=== PATIENT | female | born 1995 | race Caucasian/White ===

== ENCOUNTER → 2017-06-01 | Outpatient (CLI) | payer OTHER ==
[2016-10-28 12:10] VITALS: BP 99/46
--- NOTE | 2017-06-01 11:57 | RAD ---
Ultrasound abdomen complete 06/01/2017 Indication: Right upper quadrant abdominal pain. Normal liver enzymes. Comparison: None. Findings: Visualized pancreas body within normal limits. Grayscale evaluation of the abdominal aorta and visualized upper IVC are within normal limits. Gallbladder is normal in size and configuration without wall thickening, pericholecystic fluid or cholelithiasis. Main portal vein is patent with normal directional flow. No intra or extra hepatic biliary ductal dilatation with the common bile but measuring 4 mm. Right kidney is present measuring up to 10.5 cm in length without collecting system dilatation. Left kidney is present measuring up to 9.8 cm in length without collecting system dilatation. Spleen is normal in size measuring up to 9.3 cm CC. Impression: Normal abdominal sonogram without evidence for acute cholecystitis.
== END | disposition home or self-care (01) ==
LOC: US 07:55
PROVIDERS: ATTEND Physician Assistant
DX: R10.11 Right upper quadrant pain (principal); J00 Acute nasopharyngitis [common cold]
CPT/HCPCS: 76700

== ENCOUNTER 2017-06-02 07:42 | Emergency (ER) | payer OTHER ==
[~2017-06-02] VITALS: Ht 165.1 cm; Wt 70.8 kg
[2017-06-02] MEDS ORDERED: IV NORMAL SALINE 1,000ML 1,000 ML IV SCH (08:07)
[2017-06-02 08:38] VITALS: BP 133/72
--- NOTE | 2017-06-02 08:39 | PHYS DOC ---
General Chief Complaint: HEADACHE Stated Complaint: HEADACHE Time Seen by MD: 07:48 Source: patient Exam Limitations: no limitations Problems: History of Present Illness Initial Comments Patient is a 21-year-old female who comes to the ED complaining of migraine headache. Patient states she has long history of migraines, states she normally takes Excedrin Migraine with good relief. She's never been evaluated by neurology and has no history of head CT evaluation. Patient states that she awoke with a frontal headache, photophobia, nausea, and scotoma denies aura. Headache is described as sharp and throbbing much worse when sitting up standing and active. Symptoms relieved almost entirely with supine posture and rest. She denies being out in the heat a lot but does admit that she hasn't been drinking much. She denies fever rash or neck stiffness and states symptoms are similar to prior headaches. She denies head trauma or focal neurologic deficit or other complaints. No pre-arrival treatment Timing/Duration: 1-3 hours Severity: severe Modifying Factors: worse with movement, improves with rest Associated Symptoms: headaches, nausea/vomiting Allergies: Coded Allergies: No Known Drug Allergies (Unverified , 10/28/16) Past Medical History Medical History: migraines Surgical History: noncontributory Social History Smoker: non-smoker Alcohol: occasionally Drugs: none Review of Systems Constitutional: denies chills, denies diaphoresis, denies fever, malaise EENTM: denies eye pain, denies blurred vision, denies tearing, denies double vision, denies ear discharge, denies nose congestion, denies throat pain, denies mouth pain Respiratory: denies cough, denies shortness of breath, denies wheezing Cardiovascular: denies chest pain, denies palpitations, denies syncope Gastrointestinal: denies abdominal pain, denies diarrhea, nausea, vomiting Genitourinary: denies dysuria, denies frequency, denies hematuria Musculoskeletal: denies back pain, denies joint swelling, denies muscle pain, denies neck pain Psychiatric/Neurological: headache, denies numbness, denies paresthesia, denies seizure, denies weakness Physical Exam General Appearance: WD/WN, moderate distress Eyes: bilateral eye normal inspection, bilateral eye PERRL, bilateral eye EOMI Ear, Nose, Throat: hearing grossly normal, normal ENT inspection (dry mucous membranes), normal pharynx Neck: non-tender, supple Respiratory: normal breath sounds, no respiratory distress Cardiovascular: normal peripheral pulses, regular rate, rhythm Gastrointestinal: non tender, soft Back: no CVA tenderness, no vertebral tenderness Extremities: non-tender, normal inspection, no pedal edema, no calf tenderness Neurologic/Psychiatric: 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 Patient refuses CT evaluation in the department. 0936: Rechecked pt found her asleep. Upon waking states she still has very slight BOOTHE but overall is better. I discussed tx plan she expressed agreement/ understanding. Patient understands the need for close PCP follow-up and either CT evaluation of the head or neurologic referral. Departure Time of Disposition: 09:36 Disposition: 01 HOME, SELF-CARE Diagnosis: recurrant migraine Condition: IMPROVED Patient Instructions: Migraine Headache, [id number] Additional Instructions: Off work/school today. Rest, no strenuous activity. Aggressive hydration with gatorade, water. OTC tylenol/ibuprofen as needed. Rx: sumatriptan, zofran Follow up with your doctor Monday and to schedule outpatient neurology consultation. Return to ED with new or changing symptoms. HARJEET UPTON DO Jun 02, 2017 08:39
[2017-06-02] MEDS ORDERED: SUMAtriptan. 6 MG/0.5 ML VIAL SQ ONE (08:45)
[2017-06-02] MEDS ORDERED: diphenhydrAMINE 50 MG/ML VIAL IVP ONE (08:45)
[2017-06-02] MEDS ORDERED: ONDANSETRON PF 4 MG/2 ML VIAL. IV ONE (08:45)
== END 2017-06-02 09:45 | disposition home or self-care (01) ==
LOC: ER 07:42
DX: G43.809 Other migraine, not intractable, without status migrainosus (principal)
CPT/HCPCS: 96361; 96372; 96374; 96375; 99284; J1200; J2405; J3030; J7030

== ENCOUNTER 2017-11-08 00:26 | Emergency (ER) | payer OTHER ==
[~2017-11-08] VITALS: Ht 165.1 cm; Wt 70.8 kg
[2017-11-08] MEDS ORDERED: ONDANSETRON ODT 4 MG TAB.RAPDIS PO ONE (01:30)
[2017-11-08] MEDS ORDERED: ALPRAZolam 0.25 MG TABLET ONE (02:12)
--- NOTE | 2017-11-08 02:12 | PHYS DOC ---
General Chief Complaint: panic attack Stated Complaint: alcohol intoxication Time Seen by MD: 01:02 Source: patient, family Exam Limitations: intoxication Problems: History of Present Illness Initial Comments Patient is a 22-year-old female brought to the ED by her fianc for chest tightness. Patient admits to drinking at least 5 shots of whiskey tonight, states that she awoke about an hour ago with chest tightness. She points to her anterior chest and states that at times it feels like she is having trouble catching her breath , she denies nausea diaphoresis arm or neck symptoms. She is not a smoker and does not take control she denies any leg swelling or palpitations. She admits to drinking heavily when not going to class as she is a student. Her fianc states that she drank more tonight than normal. She has history of anxiety and panic attacks and experienced similar symptoms with at least panic attacks in the past. She denies any suicidal or homicidal ideation and on arrival symptoms are described as mild to moderate no exacerbating or alleviating factors noted. On my evaluation the patient is slurring and obviously intoxicated, she is very anxious with stable vital signs for someone who has had some much to drink heart rate running in the 90s to less than 110. She denies any family history of coronary artery disease she is not a smoker and has no DVT risks. No stool changes no vomiting no hematemesis or coffee grounds emesis. Timing/Duration: 1 hour Severity: mild Modifying Factors: improves with other Associated Symptoms: other Allergies: Coded Allergies: No Known Drug Allergies (Unverified , 10/28/16) Past Medical History Medical History: migraines Surgical History: noncontributory Psychosocial History: anxiety (panic attacks) Social History Smoker: non-smoker Alcohol: other (admits to binge drinking "on holiday") Drugs: none Review of Systems Constitutional: denies chills, denies diaphoresis, denies fever, denies malaise , denies weakness Respiratory: see HPI, denies cough, denies wheezing Cardiovascular: see HPI, palpitations, denies syncope Gastrointestinal: denies abdominal pain, denies diarrhea, denies nausea, denies vomiting Genitourinary: denies dysuria, denies frequency, denies hematuria Musculoskeletal: denies back pain, denies joint swelling, denies neck pain Psychiatric/Neurological: denies headache, denies numbness, denies paresthesia Hematologic/Lymphatic: denies anemia, denies blood clots, denies easy bleeding , denies easy bruising Physical Exam General Appearance: WD/WN, mild distress (anxious and intoxicated) Eyes: bilateral eye PERRL, bilateral eye EOMI, bilateral eye other ( conjunctivae injected bilaterally no scleral icterus) Ear, Nose, Throat: hearing grossly normal, normal ENT inspection, normal pharynx (dry mucous membranes) Neck: non-tender, supple Respiratory: chest non-tender, normal breath sounds, no respiratory distress Cardiovascular: normal peripheral pulses, regular rate, rhythm Gastrointestinal: normal bowel sounds, non tender, soft Back: no CVA tenderness, no vertebral tenderness Extremities: normal range of motion, non-tender, normal inspection, no pedal edema, no calf tenderness Neurologic/Psychiatric: 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 Interpreted by me. On initial evaluation the patient appears to be intoxicated, she also appears to be having a panic attack. A trial of Zofran ODT and portable chest x-ray as workup are agreed upon. Chest AP: No acute cardiopulmonary process, interpreted by me. Patient reevaluated after Zofran and chest x-ray, her color has improved and although she did develop nausea during my exam it has resolved. She is much more steady and no longer slurring, she still complains of anxiety and mild chest tightness. Due to extremely high ED volume the patient has had a prolonged course and has sobered up substantially, trial of alprazolam by mouth initiated. 0245: Patient reports that her chest pain resolved with alprazolam 0.5 mg by mouth. She is now ambulatory and steady on her feet walking to and from the bathroom. She now asymptomatic and states she is ready for discharge. She is not driving and her fianc and is sober, caring, and appears to be responsible. Impressions: Alcohol intoxication Panic attack Mild clinical hypovolemia tolerating by mouth History of alcohol abuse without history of withdrawal symptoms Departure Time of Disposition: 02:46 Disposition: 01 HOME, SELF-CARE Diagnosis: alcohol intoxication, panic attack Condition: IMPROVED Patient Instructions: Alcohol Intoxication, [id number], Anxiety and Panic Attacks, [id number] Additional Instructions: Please review the patient education materials given by ED staff. Aggressive hydration with Gatorade or water. Drink alcohol in moderation. No driving or operating machinery while under the influence of sedative medications. [id number] Tylenol or ibuprofen as needed. Follow-up with your doctor in 1-2 days if symptoms recur. Return to ED with new or changing symptoms. HARJEET UPTON DO Nov 08, 2017 02:12
[2017-11-08] MEDS ORDERED: ALPRAZolam 0.25 MG TABLET PO ONE ×2 (02:15→03:00)
[2017-11-08] MEDS ORDERED: ALPRAZolam 0.5 MG TABLET PO ONE (02:15)
[2017-11-08 03:00] VITALS: BP 119/67
--- NOTE | 2017-11-08 05:37 | EKG ---
[address] [address] Test Date: 2017-11-08 Test Time: 00:33:45 Pat Name: DELMA MCINTYRE Department: Room: Gender: F Featherer: DON : 1995 Requested By: HARJEET UPOTN Order Number: [id number] Reading MD: Eliezer Mccoy MD Measurements Intervals Plush Rate: 99 P: 49 CT: 172 QRS: 36 QRSD: 88 T: 19 QT: 336 QTc: 436 Interpretive Statements SINUS RHYTHM NON-SPECIFIC ST CHANGES LATERALLY Electronically Signed On 11-10-2017 12:47:26 [employer] by Eliezer Mccoy MD
--- NOTE | 2017-11-08 07:16 | RAD ---
Portable chest, 11/08/2017: History: Chest tightness, intoxication The heart size is normal. The lungs are clear. There is no evidence of pleural fluid. IMPRESSION: No acute cardiopulmonary abnormality is detected.
== END 2017-11-08 03:00 | disposition home or self-care (01) ==
LOC: ER 00:26
DX: F10.129 Alcohol abuse with intoxication, unspecified (principal); F41.0 Panic disorder [episodic paroxysmal anxiety]; E86.1 Hypovolemia; G43.909 Migraine, unspecified, not intractable, without status migrainosus
CPT/HCPCS: 71045; 93005; 99284; Q0162

== ENCOUNTER → 2018-09-14 | Outpatient (CLI) | payer OTHER ==
--- NOTE | 2018-09-14 08:58 | RAD ---
Examination: Ultrasound pelvis HISTORY: History of left lower quadrant abdominal pain COMPARISON: None available FINDINGS: The uterus measures 9.0 x 5.5 x 4.1 cm. The endometrium measures 4.1 mm in diameter. The right ovary measures 4.3 x 3.8 x 2.2 cm. The left ovary measures 4.9 x 4.8 x 2.8 cm. There is a cystic structure identified in the left ovary measuring 3.4 cm containing echogenicity within probably a cyst or hemorrhagic cyst with clot within. Blood flow identified in the right and left ovaries. Multiple follicles identified in the bilateral ovaries. IMPRESSION: 1. 3.4 cm cystic structure identified the left ovary containing echogenicity within could be a cyst or a hemorrhagic cyst with clot. 2. Multiple follicles identified in the right and left ovaries, correlate clinically for polycystic ovarian syndrome. Electronically signed by: Mike Forrester MD (09/14/2018 8:54 AM) [place] [id number]
== END | disposition home or self-care (01) ==
LOC: US 07:49
PROVIDERS: ATTEND Family Medicine
DX: N83.202 Unspecified ovarian cyst, left side (principal); N83.201 Unspecified ovarian cyst, right side
CPT/HCPCS: 76830; 76856

== ENCOUNTER 2019-06-25 06:11 | Emergency (ER) | payer OTHER ==
[~2019-06-25] VITALS: Ht 165.1 cm; Wt 75.3 kg
--- NOTE | 2019-06-25 06:34 | PHYS DOC ---
Past History Past Medical History: Migraines Additional Past Medical Histor: ADHD Past Surgical History: No Surgical History Smoking: Non-smoker Alcohol Use: Occasionally Drug Use: None Adult General Chief Complaint Chief Complaint: ABDOMINAL PAIN HPI HPI Patient is a 23-year-old female who presents to the emergency department for evaluation of epigastric and right upper quadrant pain which began overnight, and has been persistent. She has had some nausea but no vomiting, has not had any diarrhea or changes in her bowel habits, and has not had any urinary symptoms. She denies any lower abdominal pain, or pelvic pain, vaginal discharge, or abnormal vaginal bleeding. Her LMP began one week ago and ended 2 days ago. She has not had similar symptoms in the past. There are no alleviating or exacerbating factors to her symptoms. Review of Systems Review of Systems Constitutional: Denies fever or chills [] Eyes: Denies change in visual acuity, redness, or eye pain [] HENT: Denies nasal congestion or sore throat [] Respiratory: Denies cough or shortness of breath [] Cardiovascular: The patient denies any shortness of breath, chest pain, palpitations, or orthopnea [] GI: No additional information not addressed in HPI [] : Denies dysuria or hematuria [] Musculoskeletal: Denies back pain or joint pain [] Integument: Denies rash or skin lesions [] Neurologic: Denies headache, focal weakness or sensory changes [] Endocrine: Denies polyuria or polydipsia [] All other systems were reviewed and found to be within normal limits, except as documented in this note. Allergies Allergies Allergies Coded Allergies Type Severity Reaction Last Updated Verified No Known Drug Allergies 10/28/16 No Physical Exam Physical Exam PHYSICAL EXAM: CONSTITUTIONAL: Well developed, well nourished HEAD: normocephalic, atraumatic EENT: PERRL, EOMI. Conjunctivae normal color, sclerae non-icteric; moist mucous membranes. NECK: Supple, non-tender; no meningismus. LUNGS: Lungs CTA, breathing even and unlabored. Normal air movement. HEART: Regular rate and rhythm, no murmur CHEST: No deformity; non-tender ABDOMEN: The abdomen is soft, there is very mild epigastric and right upper quadrant tenderness to palpation, without rebound or guarding, Frazier sign is absent, the remainder of the abdomen, including the lower abdomen right lower quadrant, is soft and non-tender, no masses or bruits. EXTREM: Normal ROM; no deformity, no calf tenderness. Normal pulses palpable in all extremities. There is no pedal edema. SKIN: No rash; no diaphoresis NEURO: Alert; normal speech and cognition; CN's grossly intact; strength grossly intact without focal deficit. BACK: No CVA TTP. Current Patient Data Lab Results Laboratory Tests Test 06/25/19 06:25 06/25/19 06:35 06/25/19 07:12 White Blood Count 7.2 x10^3/uL Red Blood Count 4.54 x10^6/uL Hemoglobin 14.1 g/dL Hematocrit 42.1 % Mean Corpuscular Volume 93 fL Mean Corpuscular Hemoglobin 31 pg Mean Corpuscular Hemoglobin Concent 33 g/dL Red Cell Distribution Width 14.7 % Platelet Count 226 x10^3/uL Neutrophils (%) (Auto) 65 % Lymphocytes (%) (Auto) 18 % Monocytes (%) (Auto) 9 % Eosinophils (%) (Auto) 7 % Basophils (%) (Auto) 1 % Neutrophils # (Auto) 4.7 x10^3uL Lymphocytes # (Auto) 1.3 x10^3/uL Monocytes # (Auto) 0.6 x10^3/uL Eosinophils # (Auto) 0.5 x10^3/uL Basophils # (Auto) 0.1 x10^3/uL Sodium Level 139 mmol/L Potassium Level 3.4 mmol/L Chloride Level 103 mmol/L Carbon Dioxide Level 26 mmol/L Anion Gap 10 Blood Urea Nitrogen 7 mg/dL Creatinine 1.0 mg/dL Estimated GFR (Cockcroft-Gault) 68.7 BUN/Creatinine Ratio 7 Glucose Level 117 mg/dL Calcium Level 9.5 mg/dL Total Bilirubin 1.1 mg/dL Aspartate Amino Transf (AST/SGOT) 38 U/L Alanine Aminotransferase (ALT/SGPT) 44 U/L Alkaline Phosphatase 93 U/L Total Protein 8.2 g/dL Albumin 4.5 g/dL Albumin/Globulin Ratio 1.2 Lipase 168 U/L Urine Collection Type Unknown Urine Color Abbey Urine Clarity Clear Urine pH 6.0 Urine Specific [place] 1.025 Urine Protein Neg Urine Glucose (UA) Neg mg/dL Urine Ketones (Stick) Trace mg/dL Urine Blood Small Urine Nitrite Neg Urine Bilirubin Neg Urine Urobilinogen Dipstick 0.2 mg/dL Urine Leukocyte Esterase Neg Urine RBC 1-2 /HPF Urine WBC 1-4 /HPF Urine Squamous Epithelial Cells Occ /LPF Urine Bacteria Few /HPF Urine Mucus Mod /LPF Bedside Urine HCG, Qualitative hcg negative Current Medications Medications (Trade) Dose Ordered Sig/Joe Route PRN Reason Start Time Stop Time Status Last Admin Dose Admin Sodium Chloride 1,000 ml @ 1,000 mls/hr Q1H IV 06/25/19 07:00 06/25/19 07:59 DC 06/25/19 06:45 Ondansetron HCl (Zofran) 4 mg 1X ONCE IV 06/25/19 07:00 06/25/19 07:01 DC 06/25/19 06:45 Multi-Ingredient Mouthwash/Gargle (Gi Cocktail) 20 ml 1X ONCE PO 06/25/19 07:00 06/25/19 07:01 DC 06/25/19 06:45 EKG EKG [] Radiology/Procedures Radiology/Procedures [PROCEDURE: ABDOMEN LTD ABDOMEN LTD History: Right upper quadrant pain Comparison: June 01, 2017 Findings: Multiple sonographic images of the abdomen are submitted. There is no abnormality of the limited visualized pancreatic head although the remainder of the pancreas obscured by bowel gas. There is segmental visualization of the inferior vena cava. There is mild coarsening of hepatic echotexture, right lobe of the liver measuring 15.3 cm longitudinal. Right kidney measured 9.5 x 4.8 x 4.7 cm, no hydronephrosis. Gallbladder is present without intraluminal abnormality, wall thickening, pericholecystic fluid. Common bile duct is within normal limits at 0.2 cm. There is no reported evidence of a sonographic Frazier's sign. Impression: 1. There is no abnormality of the gallbladder. There is mild coarsening of hepatic echotexture, could be seen with mild steatosis.] Course & Med Decision Making Course & Med Decision Making Pertinent Labs and Imaging studies reviewed. (See chart for details) []Patient remains stable. I discussed test results, the need for close follow- up, and return precautions. Dragon Disclaimer Dragon Disclaimer This electronic medical record was generated, in whole or in part, using a voice recognition dictation system. Departure Departure: Impression: Primary Impression: Abdominal pain Disposition: HOME, SELF-CARE Condition: STABLE Referrals: OLIMPIA BARNES MD (PCP) Patient Instructions: Abdominal Pain, Gastritis, Adult Scripts Omeprazole (OMEPRAZOLE) 20 Mg Capsule.dr 1 CAP PO DAILY for -, #30 CAP 0 Refills Prov: ÓSCAR CARLOS MD 06/25/19 ÓSCAR CARLOS MD Jun 25, 2019 06:34
[2019-06-25] MEDS: IV NORMAL SALINE 1,000ML 1,000 ML IV SCH (06:44)
[2019-06-25] MEDS: ONDANSETRON PF 4 MG/2 ML VIAL. IV ONE (06:44)
[2019-06-25] MEDS: LIDO:MAALOX 1:1 20 ML SINGLE DOSE. PO ONE (06:44)
[2019-06-25 07:24] LABS: BASO # 0.1 x10^3/uL (0.0-0.2); BASO % 1 % (0-3); EOS # 0.5 x10^3/uL (0.0-0.7); EOS % 7 % (0-3); HEMATOCRIT 42.1 % (36.0-47.0); HEMOGLOBIN 14.1 g/dL (12.0-15.5); LYMPH # 1.3 x10^3/uL (1.0-4.8); LYMPH % 18 % (24-48); MEAN CORPUSCULAR HEMOGLOBIN 31 pg (25-35); MEAN CORPUSCULAR HGB CONC 33 g/dL (31-37); MEAN CORPUSCULAR VOLUME 93 fL (79-100); MONO # 0.6 x10^3/uL (0.0-1.1); MONO % 9 % (0-9); NEUT # 4.7 x10^3uL (1.8-7.7); NEUT % 65 % (31-73); PLATELET COUNT 226 x10^3/uL (140-400); RED BLOOD COUNT 4.54 x10^6/uL (3.50-5.40); RED CELL DISTRIBUTION WIDTH 14.7 % (11.5-14.5); WHITE BLOOD COUNT 7.2 x10^3/uL (4.0-11.0)
[2019-06-25 07:30] VITALS: BP 129/65
[2019-06-25 07:36] LABS: ALBUMIN 4.5 g/dL (3.4-5.0); ALBUMIN/GLOBULIN RATIO 1.2 (1.0-1.7); CALCIUM 9.5 mg/dL (8.5-10.1); GFR 68.7; POTASSIUM 3.4 mmol/L (3.5-5.1); TOTAL BILIRUBIN 1.1 mg/dL (0.2-1.0); TOTAL PROTEIN 8.2 g/dL (6.4-8.2)
[2019-06-25 07:41] LABS: BACTERIA,URINE FEW /HPF (0-FEW); BILIRUBIN,URINE NEG (NEG); CLARITY,URINE CLEAR; COLOR,URINE AMBER; GLUCOSE,URINE NEG (NEG); NITRITE,URINE NEG (NEG); SQUAMOUS EPITHELIAL CELL,UR OCC /LPF; UROBILINOGEN,URINE 0.2 mg/dL (0.2 mg/dL)
--- NOTE | 2019-06-25 08:04 | RAD ---
ABDOMEN LTD History: Right upper quadrant pain Comparison: June 01, 2017 Findings: Multiple sonographic images of the abdomen are submitted. There is no abnormality of the limited visualized pancreatic head although the remainder of the pancreas obscured by bowel gas. There is segmental visualization of the inferior vena cava. There is mild coarsening of hepatic echotexture, right lobe of the liver measuring 15.3 cm longitudinal. Right kidney measured 9.5 x 4.8 x 4.7 cm, no hydronephrosis. Gallbladder is present without intraluminal abnormality, wall thickening, pericholecystic fluid. Common bile duct is within normal limits at 0.2 cm. There is no reported evidence of a sonographic Frazier's sign. Impression: 1. There is no abnormality of the gallbladder. There is mild coarsening of hepatic echotexture, could be seen with mild steatosis. Electronically signed by: Geovany Lorenzo MD (06/25/2019 8:01 AM) [id number]
[2019-06-25] MEDS ORDERED: OMEP20CA10 PO (08:18)
== END 2019-06-25 08:30 | disposition home or self-care (01) ==
LOC: ER 06:11
DX: R10.13 Epigastric pain (principal); R10.11 Right upper quadrant pain; R11.0 Nausea; G43.909 Migraine, unspecified, not intractable, without status migrainosus; F90.9 Attention-deficit hyperactivity disorder, unspecified type
CPT/HCPCS: 36415; 76705; 80053; 81001; 81025; 83690; 85025; 96374; 99285; J2405; J7030

== ENCOUNTER 2020-02-08 20:16 | Emergency (ER) | payer OTHER ==
[~2020-02-08] VITALS: Ht 165.1 cm; Wt 91.0 kg
[~2020-02-08 20:16] MED LIST: OMEP20CA16 PO
--- NOTE | 2020-02-08 20:19 | PHYS DOC ---
Past History Past Medical History: Alcoholism, Anxiety, Depression, Migraines, UTI, Other Additional Past Medical Histor: ADHD Past Surgical History: No Surgical History Smoking: Non-smoker Alcohol Use: Occasionally Drug Use: None Adult General Chief Complaint Chief Complaint: ..."...I ve been drinking about a 1/5 of [place] a day...for past two months.. it started after my cousin was killed in a car wreck ..in [place]....I ve had anxiety before... but I ve tried to stop drinking the last couple days..now I can 't sleep...shaking...depressed.. some thouhts of suicide.. 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 Patient denies previous hospitalizations for depression. Has had history of anxiety in the past but they have never been this severe. Patient has been having night terrors. Patient does not smoke. Patient does not use other drugs other than alcohol. No history of previous alcohol withdrawal seizures or issues. No previous history of alcohol abuse prior to of her cousin. Patient has not developed a suicide plan. There is a family history of anxiety with her sister. Patient has had flu vaccination. No recent travel outside the [place] area. No history immunosuppression. No history of specific ill contacts. No criminal issues. No interpersonal social problems with her boyfriend. Does have some stress wories reference Covid 19. Pt. follows with Dr. Barnes. Pt. has no hx. of previous ETOH withdrawal seizures. Review of Systems Review of Systems Constitutional: Denies fever or chills [] Eyes: Denies change in visual acuity, redness, or eye pain [] HENT: Denies nasal congestion or sore throat [] Respiratory: Denies cough or shortness of breath [] Cardiovascular: No additional information not addressed in HPI [] GI: Denies bloody stools or diarrhea []complaints of epigastric pain, nausea and dry heaving. : Denies dysuria or hematuria [] Musculoskeletal: Denies back pain or joint pain [] Integument: Denies rash or skin lesions [] Neurologic: Denies headache, focal weakness or sensory changes. Patient has [complaints of tremors, insomnia, night terrors and anxiety. Endocrine: Denies polyuria or polydipsia [] All other systems were reviewed and found to be within normal limits, except as documented in this note. Family History Family History Sister has a history of anxiety, grandmother had breast cancer Current Medications Current Medications See nursing for home meds Allergies Allergies Allergies Coded Allergies Type Severity Reaction Last Updated Verified No Known Drug Allergies 10/28/16 No Physical Exam Physical Exam Constitutional:in acute emotional distress, very anxious in appearance. Crying HENT: Normocephalic, atraumatic, bilateral external ears normal, oropharynx moist, no oral exudates, nose normal. [] Eyes: PERRLA, EOMI, conjunctiva normal, no discharge. []Glasses Neck: Normal range of motion, no tenderness, supple, no stridor. [] Cardiovascular: Tachycardia Heart rate regular rhythm, no murmur [] Lungs & Thorax: Bilateral breath sounds equal at apexes on auscultation [] Abdomen: Bowel sounds normal, soft, no tenderness, no masses, no pulsatile masses. Obese Skin: Warm, dry, no erythema, no rash. [] Back: No tenderness, no CVA tenderness. [] Extremities: No tenderness, no cyanosis, no clubbing, ROM intact, no edema. [] Neurologic: Alert and oriented X 3, normal motor function, normal sensory function, no focal deficits noted. []Tremor. Mild hyperreflexia +3 at brachial and patella Psychologic: Affect very anxious, judgement normal, mood depressed and tearful EKG EKG My interpretation of EKG shows a sinus tachycardia at 102 bpm. Supraventricular rhythm. There is some intraventricular conduction changes in anterior lateral morphology-but no findings of acute STEMI with contralateral changes. Does have baseline artifact due to her tremor.[] Radiology/Procedures Radiology/Procedures [][address] [address] IMAGING REPORT Signed PATIENT: DELMA MCINTYRE ACCOUNT: [id number] : 1995 LOCATION: ER AGE: 24 SEX: F EXAM STATUS: REG ER ORD. PHYSICIAN: LOGAN MARTINEZ MD REASON: n, v, tachycardia, X 2 DAYS PROCEDURE: ACUTE ABDOMEN SERIES Three-view acute abdominal series. HISTORY: Nausea, vomiting, tachycardia 3 views were taken for an acute abdominal series. Lungs are clear. Heart is normal in size. There is no effusion. There is no free air under the diaphragms on the upright chest. There is gas in the colon. There is no small bowel obstruction. Stomach is mildly distended. There are no abnormal calcifications. IMPRESSION: 1. No acute chest disease. 2. No bowel obstruction or acute finding in the abdomen. Electronically signed by: Rhys Isbell MD (02/08/2020 9:56 PM) [id number] [address] [id number] IMAGING REPORT Signed PATIENT: DELMA MCINTYRE ACCOUNT: [id number] : 1995 LOCATION: ER AGE: 24 SEX: F EXAM STATUS: REG ER ORD. PHYSICIAN: LOGAN MARTINEZ MD REASON: n, v, tachycardia, X 2 DAYS PROCEDURE: ACUTE ABDOMEN SERIES Three-view acute abdominal series. HISTORY: Nausea, vomiting, tachycardia 3 views were taken for an acute abdominal series. Lungs are clear. Heart is normal in size. There is no effusion. There is no free air under the diaphragms on the upright chest. There is gas in the colon. There is no small bowel obstruction. Stomach is mildly distended. There are no abnormal calcifications. IMPRESSION: 1. No acute chest disease. 2. No bowel obstruction or acute finding in the abdomen. Electronically signed by: Rhys Isbell MD (02/08/2020 9:56 PM) [id number] DICTATED AND SIGNED BY: RHYS ISBELL MD DATE: 02/08/202155 CC: OLIMPIA BARNES MD; LOGAN MARTINEZ MD ~ DICTATED AND SIGNED BY: RHYS ISBELL MD DATE: 02/08/202155 CC: OLIMPIA BARNES MD; LOGAN MARTINEZ MD ~ Course & Med Decision Making Course & Med Decision Making Pertinent Labs and Imaging studies reviewed. (See chart for details) See Tele Psych report. Bony Cheema LMSW Push Vit. C drinks. Take daily MV. Take Keflex 500 three times a day. Follow up urine cultures. Return if any concerns. Take Ativan 1 mg qid prn for agitation and anxiety. Avoid further ETOH. Keep follow up at [facility] and plan as per DIE CUTTER APPRENTICE. May be in early stages of Alcohol withdrawal and you are now more than 24 without alcohol. Seizure precautions. Return if any concerns. Keep follow up with Dr. Barnes. Follow up urine cultures. Terrell arreola with [facility] for up-to-date information on Covid 19. Practice social distance. Avoid crowds. Impression: 1. Anxiety 2. Prolonged bereavement- since of her cousin 2 months ago 3. History of alcohol abuse last 2 months 4. Insomnia and night terrors 5. Suicidal ideation-but no plan 6. Suspect possible ETOH withdrawal 7. Mild Elevation of AST and ALT- 84/93 8. Hypomagnesium 1.7 9. UTI [] Dragon Disclaimer Dragon Disclaimer This electronic medical record was generated, in whole or in part, using a voice recognition dictation system. Departure Departure: Disposition: 01 HOME/RESIDENCE PRIOR TO ADM Condition: STABLE Referrals: OLIMPIA BARNES MD (PCP) Scripts Cephalexin (KEFLEX) 500 Mg Capsule 500 MG PO TID for UTI for 7 Days, BOTTLE Prov: LOGAN MARTINEZ MD 02/09/20 Lorazepam (ATIVAN) 1 Mg Tablet 1 MG PO QIDPRN PRN for ANXIETY / AGITATION, #10 TAB Prov: LOGAN MARTINEZ MD 02/09/20 Dragon Disclaimer This chart was dictated in whole or in part using Voice Recognition software in a busy, high-work load, and often noisy Emergency Department environment. It may contain unintended and wholly unrecognized errors or omissions. LOGAN MARTINEZ MD Feb 08, 2020 20:19
[2020-02-08] MEDS ORDERED: IV RINGERS SOLUTION,LACTATED 1,000 ML IV SCH (20:39)
[2020-02-08] MEDS ORDERED: THIAMINE 200 MG/2 ML VIAL. IV ONE (20:58)
[2020-02-08] MEDS ORDERED: MVI, ADULT NO.4 WITH VIT K 10 ML VIAL IV ONE (20:59)
[2020-02-08] MEDS ORDERED: MVI, ADULT NO.4 WITH VIT K 10 ML, FOLIC ACID INJ 1 MG, THIAMINE INJ 100 MG in IV RINGER... IV ONE ×4 (21:00)
[2020-02-08] MEDS ORDERED: FOLIC ACID 1 MG TABLET PO ONE (21:00)
[2020-02-08] MEDS ORDERED: FOLIC ACID 1 MG TABLET ONE (21:02)
[2020-02-08] MEDS ORDERED: MVI, ADULT NO.4 WITH VIT K 10 ML, THIAMINE INJ 100 MG in IV RINGERS SOLUTION,LACTATED 1... IV ONE ×3 (21:07)
[2020-02-08 21:09] LABS: BASO # 0.1 x10^3/uL (0.0-0.2); BASO % 1 % (0-3); EOS # 0.1 x10^3/uL (0.0-0.7); EOS % 1 % (0-3); HEMATOCRIT 42.9 % (36.0-47.0); HEMOGLOBIN 14.3 g/dL (12.0-15.5); LYMPH # 0.6 x10^3/uL (1.0-4.8); LYMPH % 7 % (24-48); MEAN CORPUSCULAR HEMOGLOBIN 32 pg (25-35); MEAN CORPUSCULAR HGB CONC 33 g/dL (31-37); MEAN CORPUSCULAR VOLUME 95 fL (79-100); MONO # 0.5 x10^3/uL (0.0-1.1); MONO % 6 % (0-9); NEUT # 7.3 x10^3uL (1.8-7.7); NEUT % 85 % (31-73); PLATELET COUNT 208 x10^3/uL (140-400); RED BLOOD COUNT 4.52 x10^6/uL (3.50-5.40); RED CELL DISTRIBUTION WIDTH 15.9 % (11.5-14.5); WHITE BLOOD COUNT 8.6 x10^3/uL (4.0-11.0)
[2020-02-08 21:12] LABS: BARBITURATES NEG (NEG); BENZODIAZEPINES NEG (NEG); CANNABINOIDS NEG (NEG); COCAINE NEG (NEG); METHADONE NEG (NEG); OPIATES NEG (NEG); PHENCYCLIDINE NEG (NEG)
[2020-02-08 21:13] LABS: AMPHETAMINE/METHAMPHETAMINE NEG (NEG)
[2020-02-08 21:19] LABS: CLARITY,URINE HAZY; COLOR,URINE YELLOW
[2020-02-08 21:20] LABS: BACTERIA,URINE MANY /HPF (0-FEW); BILIRUBIN,URINE NEG (NEG); GLUCOSE,URINE NEG (NEG); NITRITE,URINE NEG (NEG); SQUAMOUS EPITHELIAL CELL,UR MOD /LPF; WBC,URINE >40 /HPF (0-4)
[2020-02-08 21:29] LABS: ACETAMIN < 2.0 mcg/mL (10-30); ETHANOL < 10 mg/dL (0-10); SALIC < 2.8 mg/dL (2.8-20.0)
[2020-02-08] MEDS ORDERED: ONDANSETRON PF 4 MG/2 ML VIAL. IVP ONE (21:30)
[2020-02-08 21:44] LABS: ALBUMIN 4.8 g/dL (3.4-5.0); CALCIUM 9.4 mg/dL (8.5-10.1); CREATININE 0.8 mg/dL (0.6-1.0); DIRECT BILIRUBIN 0.2 mg/dL (0.0-0.2); GFR 88.1; MAGNESIUM 1.7 mg/dL (1.8-2.4); POTASSIUM 4.1 mmol/L (3.5-5.1); TOTAL BILIRUBIN 0.6 mg/dL (0.2-1.0); TOTAL PROTEIN 8.1 g/dL (6.4-8.2)
--- NOTE | 2020-02-08 21:58 | RAD ---
Three-view acute abdominal series. HISTORY: Nausea, vomiting, tachycardia 3 views were taken for an acute abdominal series. Lungs are clear. Heart is normal in size. There is no effusion. There is no free air under the diaphragms on the upright chest. There is gas in the colon. There is no small bowel obstruction. Stomach is mildly distended. There are no abnormal calcifications. IMPRESSION: 1. No acute chest disease. 2. No bowel obstruction or acute finding in the abdomen. Electronically signed by: Rhys Isbell MD (02/08/2020 9:56 PM) [id number]
[2020-02-08] MEDS ORDERED: cefTRIAXone SODIUM 1 GM VIAL ONE (22:00)
[2020-02-08] MEDS ORDERED: IV NORMAL SALINE 50ML 50 ML ONE (22:00)
[2020-02-09 00:26] VITALS: BP 132/81
[2020-02-09] MEDS ORDERED: LORazepam 1 MG TABLET PO ONE (00:30)
[2020-02-09] MEDS ORDERED: LORazepam 1 MG TABLET ONE (00:30)
[2020-02-09] MEDS ORDERED: LORA-254 PO (00:43)
[2020-02-09] MEDS ORDERED: CEPH-264 PO (00:51)
--- NOTE | 2020-02-10 12:01 | EKG ---
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
== END 2020-02-09 01:05 | disposition home or self-care (01) ==
LOC: ER 20:16
DX: F41.9 Anxiety disorder, unspecified (principal); G47.00 Insomnia, unspecified; F51.4 Sleep terrors [night terrors]; R45.851 Suicidal ideations; R74.8 Abnormal levels of other serum enzymes; E83.42 Hypomagnesemia; N39.0 Urinary tract infection, site not specified; F32.9 Major depressive disorder, single episode, unspecified; G43.909 Migraine, unspecified, not intractable, without status migrainosus; F10.20 Alcohol dependence, uncomplicated; Z87.440 Personal history of urinary (tract) infections; Y90.0 Blood alcohol level of less than 20 mg/100 ml
CPT/HCPCS: 36415; 74022; 80048; 80076; 80307; 80329; 81001; 81025; 82550; 83690; 83735; 83880; 84443; 84484; 85025; 85610; 85730; 87086; 87491; 87591; 93005; 96365; 96375; 99285; G0480; J0696; J2405; J7120; 82003

== ENCOUNTER 2020-07-21 17:07 | Emergency (ER) | payer OTHER ==
[~2020-07-21] VITALS: Ht 165.1 cm; Wt 85.9 kg
[~2020-07-21 17:07] MED LIST changes: +CEPH-264 PO; +LORA-254 PO
[2020-07-21] MEDS ORDERED: METOCLOPRAMIDE HCL 10 MG/2 ML VIAL. IVP ONE (18:15)
[2020-07-21] MEDS ORDERED: diphenhydrAMINE 50 MG/ML VIAL IVP ONE (18:15)
[2020-07-21] MEDS ORDERED: IV NORMAL SALINE 1,000ML 1,000 ML IV ONE (18:15)
--- NOTE | 2020-07-21 18:22 | PHYS DOC ---
Past History Past Medical History: Alcoholism, Anxiety, Depression, Migraines, UTI, Other Additional Past Medical Histor: ADHD Past Surgical History: No Surgical History Smoking: Non-smoker Alcohol Use: Occasionally Drug Use: None General Adult EDM: Chief Complaint: HEADACHE HPI: HPI: The history was obtained from the patient. Patient is a 25-year-old female with PMH migraines who presents with a chief complaint of headache. Patient states she has had a fairly constant headache over the past 6 to 7 days. She notes a history of similar headaches but this 1 seems to be lasting longer. States is located in the front right part of her head. She has tried Tylenol and 1 sumatriptan tablet at home with no relief. She does not follow with a neurologist or primary care physician for chronic migraines. She estimates she experiences headaches 2-3 times per month. Denies any acute vision or hearing changes. Does endorse photophobia. Denies phonophobia. Denies neck stiffness or pain. Denies fevers. Denies syncope. Patient denies acute onset of headache reaching maximal intensity in under one hour. This is neither the worst headache that Patient has ever experienced, nor was the onset timed with exertional activity or trauma. Patient has not experienced any fever, unusual neck pain or stiffness, syncope, or near syncope. Patient denies numbness, tingling, or weakness of the extremities. Patient also denies personal history of intracranial hemorrhage (including SAH), aneurysm, or AV malformation. Review of Systems: Review of Systems: Constitutional: Denies fever or chills Eyes: Denies change in visual acuity HENT: Denies nasal congestion or sore throat Respiratory: Denies cough or shortness of breath Cardiovascular: Denies chest pain or edema GI: Denies abdominal pain, nausea, vomiting, bloody stools or diarrhea : Denies dysuria Musculoskeletal: Denies back pain or joint pain Integument: Denies rash Neurologic: Positive for headache Endocrine: Denies polyuria or polydipsia Lymphatic: Denies swollen glands Psychiatric: Denies depression or anxiety Heart Score: Risk Factors: Risk Factors: DM, Current or recent (<one month) smoker, HTN, HLP, family history of CAD, obesity. Risk Scores: Score 0 - 3: 2.5% MACE over next 6 weeks - Discharge Home Score 4 - 6: 20.3% MACE over next 6 weeks - Admit for Clinical Observation Score 7 - 10: 72.7% MACE over next 6 weeks - Early Invasive Strategies Current Medications: Current Meds: Current Medications Medications (Trade) Dose Ordered Sig/Joe Start Time Stop Time Status Last Admin Dose Admin Diphenhydramine HCl (Benadryl) 50 mg 1X ONCE 07/21/20 18:15 07/21/20 18:16 DC 07/21/20 18:19 50 MG Metoclopramide HCl (Reglan Vial) 10 mg 1X ONCE 07/21/20 18:15 07/21/20 18:16 DC 07/21/20 18:20 10 MG Sodium Chloride 1,000 ml @ 1,000 mls/hr 1X ONCE 07/21/20 18:15 07/21/20 19:14 07/21/20 18:19 1,000 MLS/HR Allergies: Allergies: Allergies Coded Allergies Type Severity Reaction Last Updated Verified No Known Drug Allergies 10/28/16 No Physical Exam: PE: Constitutional: Well developed, well nourished, no acute distress, non-toxic appearance. [] HENT: Normocephalic, atraumatic, bilateral external ears normal, oropharynx moist, no oral exudates, nose normal. [] Eyes: PERRLA, EOMI, conjunctiva normal, no discharge. [] Neck: Normal range of motion, no tenderness, supple, no stridor. [] Cardiovascular:Heart rate regular rhythm, no murmur [] Lungs & Thorax: Bilateral breath sounds clear to auscultation [] Abdomen: Bowel sounds normal, soft, no tenderness, no masses, no pulsatile masses. [] Skin: Warm, dry, no erythema, no rash. [] Back: No tenderness, no CVA tenderness. [] Extremities: No tenderness, no cyanosis, no clubbing, ROM intact, no edema. [] Neurologic: Alert with intact cognitive function. No aphasia, dysarthria, or neglect. GCS 15. Pupils 3 mm briskly reactive b/l. No APD present. Cranial nerves 2-12 grossly intact; no facial asymmetry present, tongue midline, shoulder shrugging strength intact. Strength 5/5 and symmetric throughout. Light touch sensation intact throughout. Cerebellar testing appropriate without evidence of dysdiadochokinesia. DTR's 2+ in all 4 extremities. Negative pronator drift bilaterally. Gait normal Psychologic: Affect normal, judgement normal, mood normal. [] Current Patient Data: Labs: Laboratory Tests Test 07/21/20 18:14 07/21/20 18:29 White Blood Count 11.3 x10^3/uL Red Blood Count 4.78 x10^6/uL Hemoglobin 14.7 g/dL Hematocrit 44.1 % Mean Corpuscular Volume 92 fL Mean Corpuscular Hemoglobin 31 pg Mean Corpuscular Hemoglobin Concent 33 g/dL Red Cell Distribution Width 15.3 % Platelet Count 233 x10^3/uL Neutrophils (%) (Auto) 87 % Lymphocytes (%) (Auto) 7 % Monocytes (%) (Auto) 5 % Eosinophils (%) (Auto) 1 % Basophils (%) (Auto) 1 % Neutrophils # (Auto) 9.8 x10^3uL Lymphocytes # (Auto) 0.8 x10^3/uL Monocytes # (Auto) 0.6 x10^3/uL Eosinophils # (Auto) 0.1 x10^3/uL Basophils # (Auto) 0.1 x10^3/uL Sodium Level 137 mmol/L Potassium Level 4.0 mmol/L Chloride Level 101 mmol/L Carbon Dioxide Level 22 mmol/L Anion Gap 14 Blood Urea Nitrogen 9 mg/dL Creatinine 0.8 mg/dL Estimated GFR (Cockcroft-Gault) 87.4 Glucose Level 83 mg/dL Calcium Level 9.2 mg/dL Bedside Urine HCG, Qualitative hcg negative Current Medications Medications (Trade) Dose Ordered Sig/Joe Route PRN Reason Start Time Stop Time Status Last Admin Dose Admin Diphenhydramine HCl (Benadryl) 50 mg 1X ONCE IVP 07/21/20 18:15 07/21/20 18:16 DC 07/21/20 18:19 Sodium Chloride 1,000 ml @ 1,000 mls/hr 1X ONCE IV 07/21/20 18:15 07/21/20 19:14 DC 07/21/20 18:19 Metoclopramide HCl (Reglan Vial) 10 mg 1X ONCE IVP 07/21/20 18:15 07/21/20 18:16 DC 07/21/20 18:20 Ketorolac Tromethamine (Toradol 15mg Vial) 15 mg 1X ONCE IVP 07/21/20 18:45 07/21/20 18:51 DC 07/21/20 18:53 Vital Signs: Vital Signs Date Time Temp Pulse Resp B/P (MAP) Pulse Ox O2 Delivery O2 Flow Rate FiO2 07/21/20 17:29 98.8 118 16 120/75 (90) 97 Room Air EKG: EKG: [] Radiology/Procedures: Radiology/Procedures: [address] [address] IMAGING REPORT Signed PATIENT: DELMA MCINTYRE ACCOUNT: [id number] : 1995 LOCATION: ER AGE: 25 SEX: F EXAM STATUS: REG ER ORD. PHYSICIAN: LORI WEI DO REASON: Headahce x 1 week, sensitivity to light PROCEDURE: CT HEAD WO CONTRAST EXAM: CT Head without IV contrast CLINICAL HISTORY: Reason: Headahce x 1 week, sensitivity to light / Spl. Instructions: / History: COMPARISON: None. TECHNIQUE: Routine CT of the head without contrast. PQRS compliance statement - One or more of the following individualized dose reduction techniques were utilized for this study: 1. Automated exposure control 2. Adjustment of the mA and/or kV according to patient size 3. Use of iterative reconstruction technique FINDINGS: There is no evidence of hemorrhage, mass or extra-axial fluid collection. Crawford-white differentiation is maintained with no evidence of edema. There is no mass effect or shift of the intracranial structures. The ventricles, basilar cisterns and cortical sulci are normal in size and configuration for the patients stated age. The cerebellum and brainstem are unremarkable. The calvarium demonstrates no evidence of fracture or focal lesion. There is normal aeration of the visualized paranasal sinuses and mastoid air cells. The visualized portions of the orbits are normal. IMPRESSION: No evidence for acute intracranial process. Electronically signed by: Hermann Fernandez MD (07/21/2020 6:43 PM) [facility] DICTATED AND SIGNED BY: HERMANN FERNANDEZ MD DATE: 07/21/201842 CC: OLIMPIA BARNES MD; LORI WEI DO ~ [] Course & Med Decision Making: Course & Med Decision Making Pertinent Labs and Imaging studies reviewed. (See chart for details) [] Patient is an overall well-appearing 25-year-old female who presents with chief complaint of headache for the past week. She notes she has had a history of similar headaches. Initial vital signs notable for tachycardia. Afebrile. Exam noted above. Overall reassuring without neurologic deficit. Full range of motion of the head neck. CT imaging was obtained reveals no acute abnormality. Labs unremarkable. On repeat assessment patient states her pain is significantly improved after migraine medication. Her repeat neurologic exam remained stable. Overall very low suspicion for emergent etiology regarding her headache. I did offer to administer more medication for her migraine however the patient is declining and is requesting discharge home. Although my concern is low for possible subarachnoid hemorrhage and meningitis, I discussed the possibility the patient allow us to perform a lumbar puncture (LP). We discussed the procedure itself, in addition to the risks and benefits of performing, as well as the risks of not performing an LP. Any and all questions were answered. Patient understands that I cannot exclude these entities without analysis of the patient's CSF and patient also understands that delay/failure to diagnose these entities could result in serious harm and possibly even . Despite this, the patient is still declining to have the LP performed. Patient appears to be clinically competent and has capacity to make this decision. As such, we treated the patient symptomatically and recommended outpatient management with a either a PCP or a neurologist, in the next 1-2 days. Patient is to return to our ED immediately if they change their mind, or if there is any worsening of their condition (especially if increasing pain, persistant vomiting, stroke-like symptoms, weakness, fever, paralysis, etc.). After my independent evaluation, my clinical opinion at this time is that they are stable for discharge. Tre Disclaimer: Tre Disclaimer: This electronic medical record was generated, in whole or in part, using a voice recognition dictation system. Departure Departure: Impression: Primary Impression: Headache Qualified Codes: R51 - Headache Disposition: 01 HOME/RESIDENCE PRIOR TO ADM Condition: STABLE Referrals: OLIMPIA BARNES MD (PCP) MERRICK COLLAZO MD Patient Instructions: Migraine Headache Additional Instructions: Please follow-up with your primary care physician in the next 2 to 3 days. Justification of Admission: Justification of Admission: Justification of Admission Dx: N/A LORI WEI DO Jul 21, 2020 18:22
[2020-07-21 18:37] LABS: BASO # 0.1 x10^3/uL (0.0-0.2); BASO % 1 % (0-3); EOS # 0.1 x10^3/uL (0.0-0.7); EOS % 1 % (0-3); HEMATOCRIT 44.1 % (36.0-47.0); HEMOGLOBIN 14.7 g/dL (12.0-15.5); LYMPH # 0.8 x10^3/uL (1.0-4.8); LYMPH % 7 % (24-48); MEAN CORPUSCULAR HEMOGLOBIN 31 pg (25-35); MEAN CORPUSCULAR HGB CONC 33 g/dL (31-37); MEAN CORPUSCULAR VOLUME 92 fL (79-100); MONO # 0.6 x10^3/uL (0.0-1.1); MONO % 5 % (0-9); NEUT # 9.8 x10^3uL (1.8-7.7); NEUT % 87 % (31-73); PLATELET COUNT 233 x10^3/uL (140-400); RED BLOOD COUNT 4.78 x10^6/uL (3.50-5.40); RED CELL DISTRIBUTION WIDTH 15.3 % (11.5-14.5); WHITE BLOOD COUNT 11.3 x10^3/uL (4.0-11.0)
[2020-07-21 18:40] LABS: CALCIUM 9.2 mg/dL (8.5-10.1); CREATININE 0.8 mg/dL (0.6-1.0); GFR 87.4
[2020-07-21] MEDS ORDERED: KETOROLAC 15 MG/ML VIAL. IVP ONE (18:45)
--- NOTE | 2020-07-21 18:46 | RAD ---
EXAM: CT Head without IV contrast CLINICAL HISTORY: Reason: Headahce x 1 week, sensitivity to light / Spl. Instructions: / History: COMPARISON: None. TECHNIQUE: Routine CT of the head without contrast. PQRS compliance statement - One or more of the following individualized dose reduction techniques were utilized for this study: 1. Automated exposure control 2. Adjustment of the mA and/or kV according to patient size 3. Use of iterative reconstruction technique FINDINGS: There is no evidence of hemorrhage, mass or extra-axial fluid collection. Crawford-white differentiation is maintained with no evidence of edema. There is no mass effect or shift of the intracranial structures. The ventricles, basilar cisterns and cortical sulci are normal in size and configuration for the patients stated age. The cerebellum and brainstem are unremarkable. The calvarium demonstrates no evidence of fracture or focal lesion. There is normal aeration of the visualized paranasal sinuses and mastoid air cells. The visualized portions of the orbits are normal. IMPRESSION: No evidence for acute intracranial process. Electronically signed by: Hermann Putnam MD (07/21/2020 6:43 PM) MARY
[2020-07-21 18:55] VITALS: BP 124/75
== END 2020-07-21 19:30 | disposition home or self-care (01) ==
LOC: ER 17:07
DX: G43.909 Migraine, unspecified, not intractable, without status migrainosus (principal); F41.9 Anxiety disorder, unspecified; F32.9 Major depressive disorder, single episode, unspecified; F10.20 Alcohol dependence, uncomplicated; Z87.440 Personal history of urinary (tract) infections; Y90.9 Presence of alcohol in blood, level not specified
CPT/HCPCS: 36415; 70450; 80048; 81025; 85025; 96361; 96374; 96375; 99284; J1200; J1885; J2765; J7030

== ENCOUNTER → 2022-02-23 | Outpatient (CLI) | payer OTHER ==
--- NOTE | 2022-02-23 09:05 | RAD ---
EXAMINATION: US ABDOMEN OR LOWER BACK LIMITED 02/23/2022 8:15 AM INDICATION: Epigastric pain for one year TECHNIQUE: Landry scale and color Doppler ultrasound images of the right upper quadrant were obtained. COMPARISON: Abdominal ultrasound 06/25/2019. FINDINGS: Liver: The liver is normal in size measuring 12.6 cm in length. Normal hepatic echogenicity. No foc al liver lesion. Gallbladder: The gallbladder is normal in caliber. No cholelithiasis or sludge. The gallbladder wa ll is normal in thickness measuring 2 mm. Bile ducts: The common bile duct is normal measuring 2 mm. No intrahepatic biliary duct dilatation. Right kidney: The right kidney measures 9.9 x 4.1 x 3.6 cm. Normal cortical thickness and echogenici ty. No hydronephrosis. Other: The IVC is patent at the level of the liver. The pancreas is normal where visualized. IMPRESSION: Normal right upper quadrant ultrasound. Electronically signed by: Destinee Ashley MD (02/23/2022 9:02 AM) [id number]
== END ==
LOC: US 08:05
PROVIDERS: ATTEND Nurse Practitioner Family
DX: R10.13 Epigastric pain (principal)
CPT/HCPCS: 76705